=== PATIENT | female | born 2000 | race Hispanic/Latino ===

== ENCOUNTER 2024-10-04 00:04 | Emergency (ER) | payer BC ==
[~2024-10-04] VITALS: Ht 162.6 cm; Wt 52.0 kg
[2024-10-04] MEDS ORDERED: LACTATED RINGER'S 1,000 ML IV ONE (00:15)
[2024-10-04 00:29] LABS: BASOPHILS 0.9 % (0.1-1.2); EOSINOPHILS 1.4 % (0.7-5.8); HEMOGLOBIN 13.2 g/dL (11.2-15.7); MCHC 34.7 g/dL (32.2-35.5); MCV 92.2 fL (79.4-94.8); MONOCYTES 5.9 % (4.7-12.5); NEUTROPHILS 57.6 % (34.0-71.1); PLATELET COUNT 215 K/uL (182-369); RBC 4.12 M/uL (3.93-5.22)
[2024-10-04] MEDS ORDERED: ondansetron HCL 4 MG/2 ML VIAL IV PRN (00:45)
[2024-10-04] MEDS ORDERED: ACETAMINOPHEN 325 MG TAB PO PRN (00:45)
[2024-10-04 00:50] LABS: ACETAMINOPHEN 0 ug/mL (10-30); ALBUMIN 4.2 g/dL (3.4-5.0); ALBUMIN/GLOBULIN RATIO 1.24 (1.1-2.4); ALCOHOL, MEDICAL 266 ng/dL (<3); ALKALINE PHOSPHATASE 88 U/L (46-116); ALT (SGPT) 27 U/L (14-59); ANION GAP 18.7 (7-21); AST (SGOT) 16 U/L (15-37); BILIRUBIN, TOTAL 0.5 mg/dL (0.2-1.0); BUN/CREATININE RATIO 14.86 (6.0-28.6); CALCIUM 8.3 mg/dL (8.5-10.1); CARBON DIOXIDE 22 mmol/L (21-32); CHLORIDE 108 mmol/L (98-107); CREATININE, SERUM 0.74 mg/dL (0.55-1.02); GLOMERULAR FILTRATION RATE,EST 117 mL/min (>60); POTASSIUM 3.7 mmol/L (3.5-5.1); PROTEIN, TOTAL 7.6 g/dL (6.4-8.2); TSH, 3RD GENERATION 0.759 uIU/mL (0.358-3.740); UREA NITROGEN 11 mg/dL (7-18)
[2024-10-04 00:55] LABS: SALICYLATE <0.2 mg/dL (2.8-20.0)
[2024-10-04 00:58] LABS: BILIRUBIN, URINE NEGATIVE (negative); BLOOD/HGB, URINE TRACE-I (Negative); KETONE, URINE NEGATIVE (Negative); LEUK ESTERASE, URINE NEGATIVE (negative); NITRITE, URINE NEGATIVE (negative); PH, URINE 5.5 (5-7)
[2024-10-04 01:12] LABS: AMPHETAMINES, URINE NEGATIVE (NEGATIVE); BARBITURATES, URINE NEGATIVE (NEGATIVE); BENZODIAZEPINE, URINE NEGATIVE (NEGATIVE); BUPRENORPHINE, URINE NEGATIVE (NEGATIVE); CANNABINOID, URINE POSITIVE (NEGATIVE); COCAINE, URINE NEGATIVE (NEGATIVE); ECSTASY, URINE NEGATIVE (NEGATIVE); FENTANYL, URINE NEGATIVE (NEGATIVE); METHADONE, URINE NEGATIVE (NEGATIVE); OPIATES, URINE NEGATIVE (NEGATIVE); OXYCODONE, URINE NEGATIVE (NEGATIVE); PHENCYCLIDINE, URINE NEGATIVE (NEGATIVE)
[2024-10-04 01:34] LABS: BACTERIA, URINE RARE /hpf (negative); CASTS, URINE NONE SEEN \\lpf; COLLECTION TYPE, URINE CLEAN CATCH; CRYSTALS, URINE NONE SEEN (0-1+); EPITHELIAL CELLS, URINE SQUAMOUS 2+ /lpf (0-1+); REFLEX CULTURE, URINE No (No)
[2024-10-04 02:19] VITALS: BP 118/73
[2024-10-04] MEDS ORDERED: methylPREDNISolone SOD SUCC 40 MG/ML VIAL IV SCH (06:00)
== END 2024-10-04 02:21 | disposition home or self-care (01) ==
LOC: ED 00:04
PROVIDERS: Internal Medicine
DX: Z04.1 Encounter for examination and observation following transport accident (principal); F10.129 Alcohol abuse with intoxication, unspecified
CPT/HCPCS: 36415; 80048; 80053; 80307; 81001; 83735; 84443; 84703; 85025; 96360; 99285-25; G0480; J7121